=== PATIENT | female | born 1950 | race Asian ===

== ENCOUNTER 2023-01-05 10:01 | Outpatient (REF) | payer MEDICARE, SELFPAY ==
--- NOTE | ~2023-01-05 | US_ITS ---
EXAMINATION: US VENOUS BILATERAL LOWER EXTREMITIES (REFLUX EXAM) CLINICAL INDICATION: Leg pain and varicose veins. COMPARISON: None available. TECHNIQUE: Color-flow triplex imaging and compression Doppler was performed to evaluate both the deep and the superficial systems bilaterally. To evaluate the superficial system, the examination was performed in the upright position. Color-flow Doppler ultrasound and compression ultrasound were utilized. In addition, maneuvers were utilized to demonstrate reflux. FINDINGS: 1. DEEP VENOUS ULTRASOUND OF THE RIGHT LOWER EXTREMITY: Respiratory variation, normal compression and augmented flow are noted in the right common femoral vein as well as the right popliteal vein and there is no evidence of deep venous thrombosis at these locations. There is no evidence of reflux in the deep system in either the common femoral vein or the popliteal vein. There is no evidence of a Kaur's cyst. 2. SUPERFICIAL ULTRASOUND WITH DOPPLER OF RIGHT LOWER EXTREMITY: The right great saphenous vein at the saphenofemoral junction measures 5 mm, at the proximal thigh 4 mm, at the mid thigh 2 mm, jtkln-jpz-jaxo 2 mm, at the knee 2 mm, fohlh-eig-qgtq 1 mm, midcalf 1 mm and at the ankle measures 1 mm. There is no reflux demonstrated in the right great saphenous vein. Duplicated Right Great Saphenous Vein: A lateral accessory saphenous measures 2 mm and does not reflux. The right small saphenous vein measures 2 mm and shows no reflux. Accessory Vein of Giacomini: None. Incompetent Perforators: None. Varices Present: None. 3. DEEP VENOUS ULTRASOUND OF THE LEFT LOWER EXTREMITY: Respiratory variation, normal compression and augmented flow are noted in the left common femoral vein as well as the left popliteal vein and there is no evidence of deep venous thrombosis at these locations. There is no evidence of reflux in the deep system in either the common femoral vein or the popliteal vein. There is no evidence of a Kaur's cyst. 4. SUPERFICIAL ULTRASOUND WITH DOPPLER OF LEFT LOWER EXTREMITY: Left great saphenous vein at the saphenofemoral junction measures 6 mm, at the proximal thigh 2 mm, at the mid thigh 2 mm, kifcr-nhb-kxxo 3 mm, at the knee 2 mm, hyexo-wzt-wzrz 1 mm, midcalf 1 mm and at the ankle measures 1 mm. There is reflux in the great saphenous vein of greater than 3 seconds from nttwl-cvj-qmpf to nqnkk-jqe-rbjl. There is an area of calcification adjacent to or possibly in the wall of the great saphenous vein in the calf that measures 5 x 2 x 4 mm. This could possibly be secondary to a prior ablation as, according to the patient, the patient underwent a left laser ablation procedure. Duplicated Left Great Saphenous Vein: A lateral accessory saphenous measures 4 mm and does not reflux. The left small saphenous vein measures 2 mm and shows no reflux. Accessory Vein of Giacomini: None. Incompetent Perforators: None. Varices Present: None. US/US venous duplex LE BI IMPRESSION: 1. No evidence of reflux or thrombus in the common femoral veins or popliteal veins bilaterally. 2. The saphenous systems are competent bilaterally with the exception of the left great saphenous vein that demonstrates reflux from jjtik-skp-ulnt to kkujc-yjm-omrk.
== END 2023-01-05 10:02 | disposition home or self-care (01) ==
LOC: HO.US 10:01
PROVIDERS: Visit Provider Surgery Vascular Surgery
DX: I83.893 Varicose veins of bilateral lower extremities with other complications (principal); I83.12 Varicose veins of left lower extremity with inflammation; E11.9 Type 2 diabetes mellitus without complications
CPT/HCPCS: 93970; 99202

== ENCOUNTER 2023-03-17 08:29 | Outpatient (AMB) | payer MEDICARE, SELFPAY ==
--- NOTE | 2023-03-17 08:42 | MHC.OFFVIS ---
Intake Intake Visit Reasons: Left LE Micro Intake Note: Patient is here for a Left Leg Micro Allergies No Known Allergies Allergy (Verified 03/17/23 08:43) [facility] Social History Patient Tobacco Use Status: Never used Tobacco Office Procedures Vascular Office Procedure Details Details: Diagnosis: Left Leg varicose veins with inflammation Procedure: Left leg Microphlebectomy Anesthesia: Local Infiltration 10 cc, Tumescent: 0 cc. Varicose veins were marked in the standing position on the left leg and the patient was then placed in the supine position. The left lower extremity was prepared and draped to allow knee flexion in the sterile field. The patient had large superficial varicose veins with significant symptoms of pain. It was therefore determined to perform microphlebectomies of the clusters of varicose veins. The patient had bulging varicose veins which were previously marked in the standing position. A small stab incision was made longitudinally directly overlying the varicose vein in the calf and the varicose vein was grasped with a hemostat aided by a vein hook. It was then dissected as far proximally and distally as possible and avulsed. A total of 15 stab incisions were made and the procedure of stab phlebectomies was repeated 50 times. Hemostasis was checked and stab incision sites were closed with steri-strips and sterile dressing was given with gauze and krilex wrap followed by an armand bandage. There were no complications and blood loss was minimal. Post-Op instructions were given and a follow-up appointment was recommended. [id number] - Phleb Veins, Extrem - up to 20 All charges added?: Procedure code (CPT) selection complete Coding Level of Care Code Procedure Only Diagnoses CPT Codes Details - Vascular 5: [id number] - Phleb Veins, Extrem - up to 20 ([id number])
== END 2023-03-17 09:34 | disposition home or self-care (01) ==
PROVIDERS: Visit Provider Surgery Vascular Surgery
DX: I83.12 Varicose veins of left lower extremity with inflammation (principal)
CPT/HCPCS: 37765

== ENCOUNTER → 2023-03-17 08:29 | Outpatient (BNVA) | payer MEDICARE, SELFPAY | PROVIDERS: Visit Provider Surgery Vascular Surgery | DX: I83.12 Varicose veins of left lower extremity with inflammation (principal) | CPT/HCPCS: 37765 ==

== ENCOUNTER 2023-03-30 12:56 | Outpatient (AMB) | payer MEDICARE, SELFPAY ==
[2023-03-30 12:58] VITALS: BP 124/60; PULSE 68; O2SAT 96; BMI 20.7
--- NOTE | 2023-03-30 12:58 | A.OFFVIS_ITS ---
Intake Vital Signs 03/30/23 12:58 Height 5 ft 2 in Weight 113 lb BMI 20.7 BP 124/60 Blood Pressure Location Lt brachial Position Sitting Pulse 68 Pulse Source Pulse Oximeter Pulse Oximetry (%) 96 Oxygen Delivery Method Room Air Intake Visit Reasons: 2 week follow up Left LE Micro 03/17/2023 Intake Note: Pt presents to the office today for a 2 week follow up left LE micro 03/17/23. Pt states her left is feeling better after having the prcoedure done. Pt denies any numbness,tingling or swelling in her left leg. Allergies No Known Allergies Allergy (Verified 03/30/23 13:00) HPI 2 week follow up Left LE Micro 03/17/2023 HPI Details Very pleasant 72-year-old female presents for follow-up status post microphlebectomy. She had prior ablation down in [place] in appears to be doing well with that. She did have a bleeding episode and now reports that her veins feel significantly better on that at left lower extremity. No postprocedure issues. Now for postprocedure follow-up. [facility] Social History (Updated 03/30/23 @ 13:01 by Rebecca Casanova MA) Household Members: Spouse Housing: House Alcohol intake: never Patient Tobacco Use Status: Never used Tobacco Use of substances other than those prescribed or required for medical reasons: No Review of Systems Const All systems reviewed & are unremarkable except as noted in HPI and below Reports no additional complaints ENT Reports Normal hearing present Card Denies chest pain, Denies chest pain at rest, Denies chest pain with activity and Denies pedal edema Resp Denies cough GI Denies abdominal pain Musc Denies abnormal gait, Denies muscle cramps and Denies radiating pain into limb Skin/Breast Denies skin ulcer and Denies wounds Neuro Reports Normal hearing present and Denies abnormal gait Psych Reports no additional complaints Physical Exam Vital Signs: Last Vital Signs Pulse 68 03/30/23 12:58 BP 124/60 03/30/23 12:58 Pulse Ox 96 03/30/23 12:58 Oxygen Delivery Method Room Air 03/30/23 12:58 BMI result Body Mass Index 20.7 Const General: cooperative, healthy appearing and comfortable Orientation/consciousness: oriented to person, oriented to place and oriented to time HEENT Head: Yes normal to inspection Neck Neck: Yes normal visual inspection Carotids: no bruits Chest Chest palpation & inspection: normal inspection of the chest Resp Effort & Inspection: normal respiratory effort and able to speak in complete sentences Auscultation: clear to auscultation bilaterally, no crackles, no rales, no rhonchi and no wheezes Cardio Rate: regular rate Rhythm: regular rhythm Heart sounds: S1 normal heart sound present and S2 normal heart sound present Bruits: no carotid bruits Peripheral pulses: Peripheral pulses 2+ throughout GI Inspection: Yes normal to inspection Skin Other: Left leg incisions well healed Wounds: no wounds Hair: normal Neuro General: oriented to person, oriented to place and oriented to time Cranial nerves: Yes CN's II-XII intact bilaterally and Yes Normal hearing present Cognition (Neuro): normal cognition Motor exam (neuro): 5/5 motor strength present throughout Extrem Other: venous exam: No significant superficial varicosities or spider telangiectasias, minimal edema General: No clubbing, No cyanosis and No edema Psych Appearance: grossly normal Mental Status: mental status grossly normal Speech and movement: Normal speech and movement present Assessment & Plan Assessment & Plan (1) Varicose veins of left lower extremity with inflammation: Comment: 03/17/2023 - left leg microphlebectomy Code(s): I83.12 - Varicose veins of left lower extremity with inflammation Plan: The patient has done extremely well with all venous treatments. Patient's may often experience postprocedure phlebitic episodes and I have discussed with the patient use of warm compresses and NSAIDS if tolerated for pain discomfort. In addition, I have discussed continued conservative measures including use of compression, leg elevation, and exercise. The patient was also given an information sheet regarding appropriate use of compression stockings and future purchases. Thank you for allowing us to care for your patient with venous disease. Coding Level of Care Code Global (46285) Diagnoses Varicose veins of left lower extremity with inflammation I83.12
== END 2023-03-30 13:19 | disposition home or self-care (01) ==
PROVIDERS: Visit Provider Surgery Vascular Surgery
DX: I83.12 Varicose veins of left lower extremity with inflammation (principal)
CPT/HCPCS: 99024

== ENCOUNTER → 2023-03-30 12:56 | Outpatient (BNVA) | payer MEDICARE, SELFPAY | PROVIDERS: Visit Provider Surgery Vascular Surgery ==

== ENCOUNTER 2024-04-11 11:06 | Outpatient (AMB) | payer MEDICARE, SELFPAY ==
--- NOTE | 2024-04-11 11:18 | A.OFFVIS_ITS ---
Vital Signs 04/11/24 11:19 Height 5 ft 2 in Weight 113 lb BMI 20.7 Intake Visit Reasons: Follow up VV pain s/p procedure Intake Note: follow up for VV, hx of left LE micro 03/17/23. Pt now has Right LE VV w/ pain that cause a pulsating pain at night Accompanied by: Self / Same As Patient Allergies No Known Allergies Allergy (Verified 04/11/24 11:21) HPI HPI Follow up VV pain s/p procedure: Details: Very pleasant 74-year-old who dropped a female presents for follow-up regarding venous insufficiency. She has had previous venous surgery down in [place] and had episodes of bleeding varicosities. She had undergone left leg microphlebectomy and had done relatively well with that. She now is concerned about new varicosities which have increased on the right lower extremity. In particular on the pretibial surface. She now presents for vascular follow-up. [facility] Social History Household Members: Spouse Housing: House Alcohol intake: never Patient Tobacco Use Status: Never used Tobacco Review of Systems Const Reports as per HPI ENT Reports no additional complaints Card Denies chest pain, Denies chest pain at rest and Denies chest pain with activity Resp Denies chest congestion and Denies cough GI Reports no additional complaints Musc Details: pain over varicosities, aching of lower extremities, swelling, cramping, heaviness and tiredness, itching Denies abnormal gait Skin/Breast Reports pruritus and Denies wounds Neuro Reports no additional complaints and Denies abnormal gait Psych Denies no additional complaints Physical Exam Vital Signs: BMI result Body Mass Index 20.7 Const General: cooperative, healthy appearing and comfortable Orientation/consciousness: oriented to person, oriented to place and oriented to time Neck Carotids: no bruits Chest Chest palpation & inspection: normal inspection of the chest and normal palpation of entire chest wall Resp Effort & Inspection: normal respiratory effort and able to speak in complete sentences Cardio Rate: regular rate Heart sounds: S1 normal heart sound present and S2 normal heart sound present Peripheral pulses: Peripheral pulses 2+ throughout GI Inspection: Yes normal to inspection Skin Other: +2 edema, large rope-like varicosities greater than 4 mm right pretibial surface CEAP Classification C4 - skin color changes Ep - Etiology Primary As - superficial veins P - reflux General skin exam: dry skin Neuro General: oriented to person, oriented to place and oriented to time Extrem Right lower extremity: full ROM, normal capillary refill and edema Left lower extremity: full ROM, normal capillary refill and edema Psych Mental Status: mental status grossly normal Results Reviewed Results Reviewed: Brief summary of venous insufficiency testing is as follows: From 01/05/2023 right great saphenous vein: negative right small saphenous vein: negative right accessory vein: none present left great saphenous vein: negative left small saphenous vein: negative left accessory vein: none present Please note there is no evidence of any venous aneurysms or significant tortuosity Assessment & Plan Assessment & Plan (1) Varicose veins of right lower extremity with inflammation: Code(s): I83.11 - Varicose veins of right lower extremity with inflammation Category: Medical Plan: This patient has varicose veins with inflammation. They continue to be a source of discomfort for the patient. The patient has tried conservative treatment with compression, leg elevation and exercise program for over 3 months time. They have been compliant with all treatment. This has provided minimal relief for the patient. I do not anticipate this course of treatment will alter the underlying etiology. The patient has been scheduled for lower extremity venous treatment inclusive of --- right leg microphlebectomy. Risks, benefits, and complications of this procedure has been discussed in detail with the patient including but not limited to bleeding, infection, and the development of a DVT. The patient has demonstrated a clear understanding and has consented. We will schedule the patient as soon as possible. Thank you for allowing us to participate in this patient's care. If there are any questions or concerns please do not hesitate to contact us. Coding Level of Care Code Est Pt Level 4 (81039) Diagnoses Varicose veins of right lower extremity with inflammation I83.11
[2024-04-11 11:19] VITALS: BMI 20.7
== END 2024-04-11 11:31 | disposition home or self-care (01) ==
PROVIDERS: Visit Provider Surgery Vascular Surgery
DX: I83.11 Varicose veins of right lower extremity with inflammation (principal)
CPT/HCPCS: 99214

== ENCOUNTER → 2024-04-11 11:06 | Outpatient (BNVA) | payer MEDICARE, SELFPAY | PROVIDERS: Visit Provider Surgery Vascular Surgery | DX: I83.11 Varicose veins of right lower extremity with inflammation (principal) | CPT/HCPCS: 99212 ==

== ENCOUNTER 2024-06-07 08:07 | Outpatient (AMB) | payer MEDICARE, SELFPAY ==
[2024-06-07 08:46] VITALS: BMI 20.7
--- NOTE | 2024-06-07 08:46 | MHC.OFFVIS ---
Vital Signs 06/07/24 08:46 Height 5 ft 2 in Weight 113 lb BMI 20.7 Intake Visit Reasons: Right Leg Micro Accompanied by: Self / Same As Patient Allergies No Known Allergies Allergy (Verified 06/07/24 08:47) [facility] Social History Household Members: Spouse Housing: House Alcohol intake: never Patient Tobacco Use Status: Never used Tobacco Physical Exam Vital Signs: BMI result Body Mass Index 20.7 Office Procedures Vascular Office Procedure Details Details: Diagnosis: Right Leg varicose veins with inflammation Procedure: Right leg Microphlebectomy Anesthesia: Local Infiltration 10 cc, Tumescent: 0 cc. Varicose veins were marked in the standing position on the right leg and the patient was then placed in the supine position. The right lower extremity was prepared and draped to allow knee flexion in the sterile field. The patient had large superficial varicose veins with significant symptoms of pain. It was therefore determined to perform microphlebectomies of the clusters of varicose veins. The patient had bulging varicose veins which were previously marked in the standing position. A small stab incision was made longitudinally directly overlying the varicose vein in the calf and the varicose vein was grasped with a hemostat aided by a vein hook. It was then dissected as far proximally and distally as possible and avulsed. A total of 4 stab incisions were made and the procedure of stab phlebectomies was repeated 4 times. Hemostasis was checked and stab incision sites were closed with steri-strips and sterile dressing was given with gauze and krilex wrap followed by an armand bandage. There were no complications and blood loss was minimal. Post-Op instructions were given and a follow-up appointment was recommended. [id number] - Phleb Veins, Extrem - up to 20 All charges added?: Procedure code (CPT) selection complete Assessment & Plan Assessment & Plan (1) Varicose veins of right lower extremity with inflammation: Comment: 06/07/2024 - right leg microphlebectomy Code(s): I83.11 - Varicose veins of right lower extremity with inflammation Category: Medical Plan: See op note Coding Level of Care Code Procedure Only Diagnoses Varicose veins of right lower extremity with inflammation I83.11 CPT Codes Details - Vascular 5: [id number] - Phleb Veins, Extrem - up to 20 ([id number])
== END 2024-06-07 09:37 | disposition home or self-care (01) ==
LOC: HO.HVS 08:07
PROVIDERS: Visit Provider Surgery Vascular Surgery
DX: I83.11 Varicose veins of right lower extremity with inflammation (principal)
CPT/HCPCS: 37765

== ENCOUNTER → 2024-06-07 08:07 | Outpatient (BNVA) | payer MEDICARE, SELFPAY | PROVIDERS: Visit Provider Surgery Vascular Surgery | DX: I83.11 Varicose veins of right lower extremity with inflammation (principal) | CPT/HCPCS: 37765 ==

== ENCOUNTER 2024-06-20 10:59 | Outpatient (AMB) | payer MEDICARE, SELFPAY ==
[2024-06-20 11:07] VITALS: BMI 20.7
--- NOTE | 2024-06-20 11:07 | MHC.OFFVIS ---
Vital Signs 06/20/24 11:07 Height 5 ft 2 in Weight 113 lb BMI 20.7 Intake Visit Reasons: 2 week follow up Right Micro 06/07/24 Intake Note: 2 week follow up Right Micro 06/07/24, Still has steri strips over incisions. Accompanied by: Self / Same As Patient Allergies No Known Allergies Allergy (Verified 06/20/24 11:11) HPI HPI 2 week follow up Right Micro 06/07/24: Details: Very pleasant 74-year-old Christen female presents for follow-up status post right lower extremity microphlebectomy. Reports no postprocedure discomfort. Overall appears to be doing relatively well. Only mild discomfort on the pretibial puncture site. Now presents for routine follow-up [facility] Social History Household Members: Spouse Housing: House Alcohol intake: never Patient Tobacco Use Status: Never used Tobacco Review of Systems Const All systems reviewed & are unremarkable except as noted in HPI and below Reports no additional complaints ENT Reports Normal hearing present Card Denies chest pain, Denies chest pain at rest, Denies chest pain with activity and Denies pedal edema Resp Denies cough GI Denies abdominal pain Musc Denies abnormal gait, Denies muscle cramps and Denies radiating pain into limb Skin/Breast Denies skin ulcer and Denies wounds Neuro Reports Normal hearing present and Denies abnormal gait Psych Reports no additional complaints Physical Exam Vital Signs: BMI result Body Mass Index 20.7 Const General: cooperative, healthy appearing and comfortable Orientation/consciousness: oriented to person, oriented to place and oriented to time HEENT Head: Yes normal to inspection Neck Neck: Yes normal visual inspection Carotids: no bruits Chest Chest palpation & inspection: normal inspection of the chest Resp Effort & Inspection: normal respiratory effort and able to speak in complete sentences Auscultation: clear to auscultation bilaterally, no crackles, no rales, no rhonchi and no wheezes Cardio Rate: regular rate Rhythm: regular rhythm Heart sounds: S1 normal heart sound present and S2 normal heart sound present Bruits: no carotid bruits Peripheral pulses: Peripheral pulses 2+ throughout GI Inspection: Yes normal to inspection Skin Wounds: no wounds Hair: normal Neuro General: oriented to person, oriented to place and oriented to time Cranial nerves: Yes CN's II-XII intact bilaterally and Yes Normal hearing present Cognition (Neuro): normal cognition Motor exam (neuro): 5/5 motor strength present throughout Extrem Other: venous exam: No significant superficial varicosities or spider telangiectasias, minimal edema General: No clubbing, No cyanosis and No edema Psych Appearance: grossly normal Mental Status: mental status grossly normal Speech and movement: Normal speech and movement present Assessment & Plan Assessment & Plan (1) Varicose veins of right lower extremity with inflammation: Comment: 06/07/2024 - right leg microphlebectomy Code(s): I83.11 - Varicose veins of right lower extremity with inflammation Category: Medical Plan: The patient has done extremely well with all venous treatments. Patient's may often experience postprocedure phlebitic episodes and I have discussed with the patient use of warm compresses and NSAIDS if tolerated for pain discomfort. In addition, I have discussed continued conservative measures including use of compression, leg elevation, and exercise. The patient was also given an information sheet regarding appropriate use of compression stockings and future purchases. Thank you for allowing us to care for your patient with venous disease. (2) Varicose veins of left lower extremity with inflammation: Comment: 03/17/2023 - left leg microphlebectomy Code(s): I83.12 - Varicose veins of left lower extremity with inflammation Category: Medical Plan: See above Coding Level of Care Code Est Pt Level 3 (90683) Diagnoses Varicose veins of right lower extremity with inflammation I83.11 Varicose veins of left lower extremity with inflammation I83.12
== END 2024-06-20 11:23 | disposition home or self-care (01) ==
PROVIDERS: Visit Provider Surgery Vascular Surgery
DX: I83.11 Varicose veins of right lower extremity with inflammation (principal); I83.12 Varicose veins of left lower extremity with inflammation
CPT/HCPCS: 99213

== ENCOUNTER → 2024-06-20 10:59 | Outpatient (BNVA) | payer MEDICARE, SELFPAY | PROVIDERS: Visit Provider Surgery Vascular Surgery | DX: I83.11 Varicose veins of right lower extremity with inflammation (principal); I83.12 Varicose veins of left lower extremity with inflammation | CPT/HCPCS: 99212 ==